=== PATIENT | female | born 1965 | race American Indian/Alaskan Native ===

== ENCOUNTER → 2018-11-08 10:54 | Outpatient (CLI) | payer OTHER ==
[~2018-11-08 10:54] MED LIST: AMOX1TAB12 PO; CIPRO500 MG PO; PYRIDIUM DS200 MG PO
== END | disposition home or self-care (01) ==
LOC: RAD 10:54
DX: M54.2 Cervicalgia (principal); M25.521 Pain in right elbow

== ENCOUNTER 2018-11-10 07:48 | Outpatient (CLI) | payer OTHER | END 2018-11-10 07:57 | disposition home or self-care (01) | LOC: SONOGRAMA 07:48 → MAMO-SONO 08:45 | DX: R10.84 Generalized abdominal pain (principal); R10.10 Upper abdominal pain, unspecified; K80.80 Other cholelithiasis without obstruction ==

== ENCOUNTER 2020-09-04 07:29 | Outpatient (CLI) | payer OTHER | END 2020-09-04 07:36 | disposition home or self-care (01) | LOC: SONOGRAMA 07:29 | PROVIDERS: ATTEND Internal Medicine | DX: E04.2 Nontoxic multinodular goiter (principal) ==

== ENCOUNTER → 2021-05-20 06:19 | Outpatient (CLI) | payer OTHER | END | disposition home or self-care (01) | LOC: LAB 06:19 | PROVIDERS: ATTEND Internal Medicine | DX: D64.89 Other specified anemias (principal); E03.8 Other specified hypothyroidism; E55.9 Vitamin D deficiency, unspecified; E78.49 Other hyperlipidemia; Z12.11 Encounter for screening for malignant neoplasm of colon; N39.0 Urinary tract infection, site not specified; I10 Essential (primary) hypertension; E11.65 Type 2 diabetes mellitus with hyperglycemia ==

== ENCOUNTER 2021-11-28 06:36 | Outpatient (CLI) | payer OTHER | END 2021-11-28 06:37 | disposition home or self-care (01) | LOC: LAB 06:36 | PROVIDERS: ATTEND Internal Medicine | DX: E11.65 Type 2 diabetes mellitus with hyperglycemia (principal); E55.9 Vitamin D deficiency, unspecified; E03.8 Other specified hypothyroidism; I10 Essential (primary) hypertension; E78.5 Hyperlipidemia, unspecified ==

== ENCOUNTER 2022-01-27 06:32 | Outpatient (CLI) | payer OTHER | END 2022-01-27 06:33 | disposition home or self-care (01) | LOC: LAB 06:32 | DX: E06.9 Thyroiditis, unspecified (principal); E03.9 Hypothyroidism, unspecified; D64.9 Anemia, unspecified; I10 Essential (primary) hypertension; R79.89 Other specified abnormal findings of blood chemistry; E78.2 Mixed hyperlipidemia; J45.30 Mild persistent asthma, uncomplicated; R73.01 Impaired fasting glucose ==

== ENCOUNTER 2024-03-31 07:50 | Outpatient (CLI) | payer OTHER | END 2024-03-31 07:53 | disposition home or self-care (01) | LOC: SONOGRAMA 07:50 | DX: R10.9 Unspecified abdominal pain (principal); K82.8 Other specified diseases of gallbladder ==

== ENCOUNTER 2024-06-24 08:44 | Outpatient (CLI) | payer OTHER | END 2024-06-24 08:48 | disposition home or self-care (01) | LOC: TOM 08:44 | DX: J44.9 Chronic obstructive pulmonary disease, unspecified (principal); R06.09 Other forms of dyspnea; M06.00 Rheumatoid arthritis without rheumatoid factor, unspecified site ==

== ENCOUNTER 2024-07-21 07:26 | Outpatient (CLI) | payer OTHER | END 2024-07-21 07:33 | disposition home or self-care (01) | LOC: MAMO-SONO 07:26 | DX: N64.4 Mastodynia (principal); Z12.31 Encounter for screening mammogram for malignant neoplasm of breast; Z80.3 Family history of malignant neoplasm of breast ==

== ENCOUNTER 2024-11-25 06:09 | Outpatient (CLI) | payer OTHER ==
[2024-11-25 07:06] LABS: BASO % 1.0 % (0.1-1.2); EOS # 0.19 (0.04-0.54); EOS % 3.6 % (0.7-7.0); LYMPH # 1.78 (1.18-3.74); LYMPH % 34.1 % (19.3-53.1); MEAN PLATELET VOLUME 13.00 fl (9.4-12.4); MONO # 0.48 (0.24-0.82); MONO % 9.2 % (4.7-12.5); NEUT # 2.71 (1.56-6.13); NEUT % 51.9 % (34.0-71.1); RED CELL DISTRIBUTION WIDTH 10.7 % (11.6-14.4)
[2024-11-25 07:56] LABS: ALT/SGPT 32.0 U/L (12-78); AST/SGOT 12.0 U/L (15-37); BILIRUBIN TOTAL 0.57 mg/dL (0.3-1.2); BUN CREA RATIO 26.0 (7.0-25.0); CHOL HDL RATIO 2.1 (0-5.0); CREATININE SERUM 0.68 mg/dL (0.55-1.02); GFR 88.26; GLOBULINA 2.8 G/DL (2.4-3.5); GLUCOSE FASTING 105.0 mg/dL (65-100); HDL 76.0 mg/dl (40-60); LDL 73.0 mg/dl (0-130); OSMOLALITY SERUM 287.0 MOSM/KG (275-295); T4 FREE 1.29 NG/ML (0.76-1.46); TSH 0.442 uIU/mL (0.358-3.74); VLDL 7.0 (0-39)
[2024-11-25 09:25] LABS: URINE APPEARANCE Clear; URINE BILIRRUBIN Negative (NEGATIVE); URINE BLOOD Negative; URINE COLOR Yellow; URINE GLUCOSE Negative (NEGATIVE); URINE KETONE Negative (NEGATIVE); URINE LEUKOCYTE Negative; URINE NITRATE Negative; URINE PROTEIN Negative (NEGATIVE); URINE UROBILINOGEN 0.2 E.U./dl
[2024-11-25 09:29] LABS: URINE BACTERIA 4.8 uL (0.0-1933); URINE WBC 2.1 uL (0.0-23.2)
[2024-11-25 10:15] LABS: URINE CAST 0.00 uL (0.0-1.40); URINE EPITHELIAL CELLS 0.9 uL (0.0-38.8); URINE RBC 0.8 uL (0.0-20.8)
== END 2024-11-25 06:18 | disposition home or self-care (01) ==
LOC: LAB 06:09
PROVIDERS: ATTEND Internal Medicine
DX: R73.01 Impaired fasting glucose (principal); I10 Essential (primary) hypertension; D64.9 Anemia, unspecified; E78.2 Mixed hyperlipidemia; R80.8 Other proteinuria; E03.8 Other specified hypothyroidism